=== PATIENT | male | born 1970 | race African-American/Black ===

== ENCOUNTER 2019-11-07 16:23 | Emergency (ER) | payer OTHER, MEDICARE ==
[2019-11-07] MEDS ORDERED: KETOROLAC TROMETHAMINE INJ/PF 30 MG/1 ML SDV IV ONE (17:40)
--- NOTE | 2019-11-07 17:42 | ER Document Report ---
ED Medical Screen (RME) - General Chief Complaint: Back Pain Stated Complaint: BACK PAIN Time Seen by Provider: 11/07/19 17:31 Notes: HPI: 49-year-old male presenting to the emergency department complaining of 3 to 4 weeks of progressively worsening pain in the right lower back, right lower quadrant, right hip region. Increased difficulty with walking. Subjective fevers at home. No dysuria. Some occasional constipation no diarrhea. Patient states she has had multiple back surgeries in the past in the lumbar region. States he has a fusion L4-L5. Patient was not sure of whether the hip was related to the back pain or different. He states it hurts to walk or bend. No definitive trauma in the last month to the hip region. I have greeted and performed a rapid initial assessment of this patient. A comprehensive ED assessment and evaluation of the patient, analysis of test results and completion of the medical decision making process will be conducted by additional ED providers PHYSICAL EXAMINATION: GENERAL: Well-appearing, well-nourished and in mild acute distress. HEAD: Atraumatic, normocephalic. EYES: sclera anicteric, conjunctiva are normal. ENT: Moist mucous membranes. NECK: Normal range of motion LUNGS: Normal work of breathing, lung sounds clear to auscultation HEART: 2+ radial pulses bilaterally, regular rate and rhythm ABD: limited by positioning for exam in triage. Obese, moderate tenderness with guarding in the right lower quadrant EXTREMITIES: no pitting or edema. No cyanosis. Mild tenderness on palpation around the right hip girdle much more prominent through the right inguinal region. Mild tenderness across the lower lumbar back on the right and centrally NEUROLOGICAL: No focal neurological deficits. Moves all extremities spontaneously and on command. PSYCH: Normal mood, normal affect. SKIN: Warm, Dry, normal turgor, no rashes or lesions noted. TRAVEL OUTSIDE OF THE [place] IN LAST 30 DAYS: No - Related Data Allergies/Adverse Reactions: No Known Allergies Allergy (Unverified 11/07/19 17:32) Past Medical History Past Surgical History: Reports: Hx Orthopedic Surgery - spinal fusion Physical Exam - Vital signs Vitals: Temp Pulse Resp BP Pulse Ox 98.4 F 86 18 152/93 H 97 11/07/19 17:22 11/07/19 17:22 11/07/19 17:22 11/07/19 17:22 11/07/19 17:22 Course - Vital Signs Vital signs: Temp Pulse Resp BP Pulse Ox 98.4 F 86 18 152/93 H 97 11/07/19 17:22 11/07/19 17:22 11/07/19 17:22 11/07/19 17:22 11/07/19 17:22
[2019-11-07 18:57] LABS: ABSOLUTE BASOPHILS # (AUTO) 0.2 10^3/uL (0.0-0.2); ABSOLUTE EOSINOPHILS # (AUTO) 0.3 10^3/uL (0.0-0.6); ABSOLUTE LYMPHOCYTES (AUTO) 2.5 10^3/uL (0.5-4.7); ABSOLUTE MONOCYTES (AUTO) 0.6 10^3/uL (0.1-1.4); ABSOLUTE NEUT (AUTO) 3.5 10^3/uL (1.7-8.2); BASOPHILS % (AUTO) 2.5 % (0-2); EOSINOPHILS % (AUTO) 4.5 % (0-6); HEMOGLOBIN 16.5 g/dL (13.5-17.0); LYMPHOCYTES % (AUTO) 35.6 % (13-45); MEAN CORPUSCULAR HEMOGLOBIN 32.1 pg (27.0-33.4); MEAN CORPUSCULAR HGB CONC 34.3 g/dL (32.0-36.0); MEAN CORPUSCULAR VOLUME 94 fl (80-97); MONOCYTES % (AUTO) 8.2 % (3-13); PLATELET COUNT 190 10^3/uL (150-450); RED BLOOD COUNT 5.13 10^6/uL (4.35-5.55); RED CELL DISTRIBUTION WIDTH 14.3 % (11.5-14.0); SEGMENTED NEUTROPHILS % (AUTO) 49.2 % (42-78); TOTAL CELLS COUNTED % (AUTO) 100 %
[2019-11-07 19:08] LABS: APPEARANCE,URINE SLIGHTLY-CLOUDY; BILIRUBIN,URINE NEGATIVE (NEGATIVE); COLOR,URINE YELLOW; GLUCOSE, URINE NEGATIVE (NEGATIVE); KETONES,URINE NEGATIVE (NEGATIVE); LEUKOCYTE ESTERASE,URINE NEGATIVE (NEGATIVE); NITRITE,URINE NEGATIVE (NEGATIVE); PROTEIN,URINE NEGATIVE (NEGATIVE); URINE SPECIFIC GRAVITY 1.023
[2019-11-07 19:15] LABS: ALBUMIN 4.3 g/dL (3.5-5.0); ALKALINE PHOSPHATASE 160 U/L (38-126); ANION GAP 8 (5-19); ASPARTATE AMINO TRANSFERASE 24 U/L (17-59); BILIRUBIN,TOTAL 0.5 mg/dL (0.2-1.3); BLOOD UREA NITROGEN 16 mg/dL (7-20); CALCIUM 9.1 mg/dL (8.4-10.2); CARBON DIOXIDE 26 mmol/L (22-30); CHLORIDE 106 mmol/L (98-107); GLUCOSE 86 mg/dL (75-110); POTASSIUM 4.1 mmol/L (3.6-5.0); TOTAL PROTEIN 7.9 g/dL (6.3-8.2)
[2019-11-07] MEDS ORDERED: KETOROLAC TROMETHAMINE INJ/PF 30 MG/1 ML SDV ONE (20:47)
[2019-11-07] MEDS ORDERED: HYDROMORPHONE HCL INJ/PF 2 MG/ML AMPULE IV ONE (21:21)
[2019-11-07] MEDS ORDERED: ONDANSETRON HCL INJ/PF 4 MG/2 ML SDV IV ONE (21:21)
--- NOTE | 2019-11-07 21:24 | ER Document Report ---
ED General - General Chief Complaint: Back Pain Stated Complaint: BACK PAIN Time Seen by Provider: 11/07/19 17:31 TRAVEL OUTSIDE OF THE [place] IN LAST 30 DAYS: No - HPI Notes: Patient is a 49-year-old male with a history of multiple back surgeries, including lumbar spinal fusion, who presents to the emergency department for evaluation of progressively worsened back pain with radiculopathy, urinary urgency, and saddle paresthesias. He states his pain is been progressively worse over the last month. He denies any lele incontinence, but states he is developed severe urinary urgency which is different. He also complains of paresthesias in the perineal area. He has had multiple injections, is under pain management in the past as well. Pain is in his lower back, right greater than left, radiates down the right buttock, posterior thigh, and the lateral aspect of the right leg. He describes a numbness and tingling in his great toe, the lateral aspect of his right leg. - Related Data Allergies/Adverse Reactions: No Known Allergies Allergy (Unverified 11/07/19 17:32) Home Medications: Tizanidine, myocarditis, Percocet Past Medical History - General Information source: Patient - Social History Smoking Status: Never Smoker Family History: Reviewed & Not Pertinent Patient has suicidal ideation: No Patient has homicidal ideation: No - Past Medical History Cardiac Medical History: Reports: Hx Hypertension Pulmonary Medical History: Reports: Hx Asthma Musculoskeletal Medical History: Reports Hx Musculoskeletal Trauma Past Surgical History: Reports: Hx Orthopedic Surgery - spinal fusion lumbar and cervical Review of Systems - Review of Systems Constitutional: No symptoms reported EENT: No symptoms reported Cardiovascular: No symptoms reported Respiratory: No symptoms reported Gastrointestinal: No symptoms reported Genitourinary: No symptoms reported Musculoskeletal: See HPI Skin: No symptoms reported Neurological/Psychological: See HPI Physical Exam - Vital signs Vitals: Temp Pulse Resp BP Pulse Ox 98.4 F 86 18 152/93 H 97 11/07/19 17:22 11/07/19 17:22 11/07/19 17:22 11/07/19 17:22 11/07/19 17:22 - Notes Notes: This is a very pleasant but obese 49-year-old male who appears his stated age, no acute distress. Vital signs reviewed, please refer to chart. Head is normocephalic, atraumatic. Pupils equal round, reactive to light. Neck is supple without meningismus. Heart is regular rate and rhythm. Lungs are clear to auscultation bilaterally. Abdomen is soft, nontender, normoactive bowel sounds throughout. Extremities without cyanosis, clubbing. Examination of spine is no midline tenderness or step-off. He has paraspinal muscular tenderness throughout the lumbar spine. Straight leg raise exam not attempted secondary to pain. He has 3+ out of 5 strength on the right lower extremity, 4+ out of 5 on the left. Patellar reflexes absent on the right lower extremity, +1 in the left lower extremity. He is +2 Achilles reflexes bilaterally. Sensation is diminished on the right compared to left in regards to light touch throughout. Course - Re-evaluation Re-evalutation: 11/07/19 21:28 Patient presents to the emergency department for evaluation. He states he has had some significant perineal numbness as well as urinary issues. Given his extensive history I do believe it is appropriate to rule out cauda equina at this time. MRI of the lumbar spine is ordered. His lab work is unremarkable, including an unremarkable urinalysis. He is given pain medicine. We will continue to monitor. 11/08/19 01:47 Patient still complaining of pain, but his neurological deficits have not worsened. I suspect his leg weakness is more secondary to pain. He is medicated further. I did discuss his MRI results, but at this time all that is identified is disc bulges, facet arthropathy, and likely fibrosis/scar tissue. We will send him home with steroids, small amount of pain medication. We will refer him on for primary care follow-up, as he is just moved to the area, does not have a primary care physician. He is to return to the ED with worsening or new concerning symptoms of any sort. - Vital Signs Vital signs: Temp Pulse Resp BP Pulse Ox 98.5 F 72 20 125/73 97 11/07/19 20:38 11/07/19 20:38 11/07/19 20:38 11/07/19 20:38 11/07/19 20:38 - Laboratory Result Diagrams: 11/07/19 18:39 11/07/19 18:39 Laboratory results interpreted by me: 11/07/19 11/07/19 11/07/19 18:30 18:39 18:39 RDW 14.3 H Baso % (Auto) 2.5 H Alkaline Phosphatase 160 H Urine Urobilinogen 2.0 H Urine Ascorbic Acid 40 H - Diagnostic Test Radiology reviewed: Reports reviewed Radiology results interpreted by me: 11/08/19 01:49 Abdomen/Pelvis CT 11/07/19 00:00 IMPRESSION: No acute abnormality is identified. Nonobstructing renal calculi on the left Postsurgical changes in the lumbar spine Lumbar Spine MRI 11/07/19 21:20 IMPRESSION:Small amount of abnormal soft tissue surrounding the thecal sac at the level of L5-S1 likely fibrosis. Postcontrast imaging would be beneficial for further evaluation. Mild narrowing of the central canal and neural foraminal stenosis at L2-L3 Extensive postsurgical changes as described without significant central canal narrowing elsewhere in the spine Discharge - Discharge Clinical Impression: Lumbar radiculopathy Lumbar spinal stenosis Qualifiers: Neurogenic claudication status: unspecified Qualified Code(s): M48.061 - Spinal stenosis, lumbar region without neurogenic claudication Condition: Stable Disposition: HOME, SELF-CARE Instructions: Low Back Pain ([facility]), Radiculopathy ([facility]) Additional Instructions: Take medications as prescribed. Watch for dizziness, drowsiness, constipation with the Percocet. Follow-up with primary care soon as possible. If you develop incontinence, worsened weakness, or any other new or concerning symptoms, please return immediately to the emergency department for evaluation.
--- NOTE | 2019-11-07 21:43 | RADIOLOGY REPORT (SQ) ---
EXAM DESCRIPTION: CT ABDOMEN PELVIS WITH IV CONTRAST COMPLETED DATE/TME: 11/07/2019 00:00 CLINICAL HISTORY: 49 years Male diverticulitis COMPARISON: None. TECHNIQUE: Contiguous axial images obtained through the abdomen and pelvis following IV contrast. Reformatted images obtained. This exam was performed according to our department optimization program which includes automated exposure control, adjustment of the mA and/or kv according to patient size and/or use of iterative reconstruction technique. FINDINGS: The liver appears unremarkable. The spleen and pancreas appear unremarkable. No adrenal masses. Nonobstructing renal calculi on the left. The gallbladder is visualized. No aneurysmal dilatation of the aorta. No bowel obstruction. The appendix is unremarkable. No significant free fluid noted. There are postsurgical changes in the lumbar spine. Fusion extends from L3 to S1. IMPRESSION: No acute abnormality is identified. Nonobstructing renal calculi on the left Postsurgical changes in the lumbar spine
--- NOTE | 2019-11-07 23:30 | RADIOLOGY REPORT (SQ) ---
EXAM DESCRIPTION: MR LUMBAR SPINE WITHOUT IV CONTRAST COMPLETED DATE/TME: 11/07/2019 21:20 CLINICAL HISTORY: 49 years Male low back pain, urinary urgency, saddle paresthesia COMPARISON: None. TECHNIQUE: Multiplanar and multisequence imaging obtained through the lumbar spine without IV contrast. FINDINGS: Straightening of the normal lordosis. There is anterior plate and screw fixation at L5-S1. Intervertebral graft material at L3-4 and L4-5. Pedicle screws at L3 and L4 with posterior fixation rods. Loss of height and signal at L2-L3. Conus ends at L1. L2-L3 there is facet arthropathy and generalized bulging of the disc which results in mild narrowing of the central canal and bilateral neural foraminal stenosis. L3-4: Bilateral neural foraminal narrowing without significant central canal narrowing. L4-5: Moderate right and mild left neural foraminal stenosis. L5-S1: There is facet arthropathy with bilateral neural foraminal stenosis. Small amount of abnormal soft tissue surrounding the thecal sac at the level of L5-S1 likely fibrosis. Postcontrast imaging would be beneficial for further evaluation. IMPRESSION:Small amount of abnormal soft tissue surrounding the thecal sac at the level of L5-S1 likely fibrosis. Postcontrast imaging would be beneficial for further evaluation. Mild narrowing of the central canal and neural foraminal stenosis at L2-L3 Extensive postsurgical changes as described without significant central canal narrowing elsewhere in the spine
[2019-11-08] MEDS ORDERED: METHYLPREDNISOLONE INJ 125 MG/2 ML SDV IV ONE (01:46)
[2019-11-08] MEDS ORDERED: HYDROMORPHONE HCL INJ/PF 2 MG/ML AMPULE IV ONE (01:46)
[2019-11-08] MEDS ORDERED: HYDROCODONE/ACETAMINOPHEN 5-325 MG (6 TAB/ER DISP) PO PRN (01:51)
[2019-11-08 03:02] VITALS: BP 114/87
== END 2019-11-08 03:02 | disposition home or self-care (01) ==
LOC: ER 16:23
DX: M48.061 Spinal stenosis, lumbar region without neurogenic claudication (principal); M54.16 Radiculopathy, lumbar region; I10 Essential (primary) hypertension; Z98.1 Arthrodesis status
CPT/HCPCS: 96376; 99283; 96374; 96375; 36415; 83690; 85025; 80053; 81001; 72148; 74177; J2930; J1885; J1170 ×2; J2405